=== PATIENT | female | born 1985 | race Caucasian/White ===

== ENCOUNTER 2021-12-12 17:24 | Emergency (ER) | payer OTHER ==
[~2021-12-12] VITALS: Ht 154.9 cm; Wt 63.5 kg
[2021-12-12] MEDS ORDERED: BIRTH CONTROL (17:45)
[2021-12-12 18:40] LABS: ABSOLUTE EOSINOPHILS 0.1 thou/uL (0.0-0.7); ABSOLUTE LYMPHOCYTES 2.5 thou/uL (0.8-5.3); ABSOLUTE MONOCYTES 0.7 thou/uL (0.0-1.2); ABSOLUTE NEUTROPHILS 4.9 thou/uL (1.6-8.1); BASOPHILS 0.2 %; EOSINOPHILS 1.2 %; HEMATOCRIT 41.6 % (37.0-47.0); HEMOGLOBIN 14.1 gm/dL (12.0-15.0); LYMPHOCYTES 30.7 %; MCH 29.8 pg (26.0-34.0); MCV 87.8 fL (80.0-100.0); MONOCYTES 8.2 %; MPV 7.6 fl. (7.2-11.1); NUCLEATED RBCS 0 /100WBC; PLATELET COUNT* 277 thou/uL (150-400); POLYS 59.7 %; RBC 4.74 mil/uL (4.20-5.00); RDW-CV 12.1 % (10.5-14.5); WBC 8.2 thou/uL (4.0-11.0)
[2021-12-12 18:48] LABS: CALCIUM 8.8 mg/dL (8.5-10.1); CREATININE 0.7 mg/dL (0.6-1.3); POTASSIUM 3.9 mmol/L (3.5-5.1)
[2021-12-12 18:52] LABS: ALBUMIN 3.8 g/dL (3.4-5.0); TOTAL BILIRUBIN 0.3 mg/dL (<0.1-1.0); TOTAL PROTEIN 7.4 g/dL (6.4-8.2)
[2021-12-12 20:15] LABS: URINE BILIRUBIN NEGATIVE (Negative); URINE BLOOD TRACE (Negative); URINE CLARITY CLEAR; URINE COLOR YELLOW; URINE GLUCOSE-RANDOM NEGATIVE (Negative); URINE KETONES 1+ (Negative); URINE LEUKOCYTES-REFLEX NEGATIVE (Negative); URINE NITRITE-REFLEX NEGATIVE (Negative); URINE PROTEIN NEGATIVE (Negative); URINE SPECIFIC GRAVITY 1.025 (1.005-1.030); URINE UROBILINOGEN 0.2 E.U./dl (0.2-1.0)
[2021-12-12] MEDS ORDERED: BUTALB-APAP-CA1 EACH PO (20:29)
[2021-12-12] MEDS ORDERED: NAPROSYN500 MG PO (20:29)
[2021-12-12 20:57] VITALS: BP 143/85
--- NOTE | 2021-12-13 12:52 | EKG ---
[place] [address] ELECTROCARDIOGRAM REPORT Name: JUDITH ZABALA Shannan Room: [facility]#: [id number] Admission: 12/12/21 Attend Phys: Discharge: 12/12/21 Date of : 89 Date of Service: 12/12/21 1758 Report #: [id number] THIS REPORT FOR: //name// [facility] ED Test Date: 2021-12-12 Test Time: 17:58:14 Pat Name: JUDITH ZABALA Department: Room: Gender: F Plasterer Spot: VITA : 1985 Requested By: Thomas Mayberry Order Number: [id number] MD: Henry Evans Measurements Intervals [place] Rate: 95 P: 41 NV: 120 QRS: 45 QRSD: 83 T: 35 QT: 350 QTc: 440 Interpretive Statements Sinus rhythm Probable left atrial enlargement No previous ECG available for comparison Electronically Signed On 12-13-2021 12:52:50 [employer]IMAL [employer]END[employer] by Henry Evans [email or web address] <ELECTRONICALLY SIGNED> By: Christa Evans MD, [facility] 12/13/21 [id number] 57 Christa Evans MD, [facility] /EPI
== END 2021-12-12 20:59 | disposition home or self-care (01) ==
LOC: M.ERS 17:24
PROVIDERS: Physician Assistant
DX: I10 Essential (primary) hypertension (principal); R51.9 Headache, unspecified